=== PATIENT | male | born 1990 | race Caucasian/White ===

== ENCOUNTER 2017-06-29 11:05 | Emergency (ER) | payer SELFPAY ==
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
== END 2017-06-29 12:45 | disposition home or self-care (01) ==
LOC: DL.ED 11:05
DX: Z77.21 Contact with and (suspected) exposure to potentially hazardous body fluids (principal)
CPT/HCPCS: 36415; 86703; 86803; 87340; 99282